=== PATIENT | male | born 2000 ===

== ENCOUNTER 2025-04-06 17:44 | Outpatient (CLI) | payer BC, SELFPAY ==
--- NOTE | ~2025-04-06 | XR_ITS ---
EXAMINATION: XR chest 2V DATE: 04/06/2025 18:06 INDICATION: Cough. TECHNIQUE: Frontal and lateral views of the chest were obtained. COMPARISON: None. FINDINGS: Heart size is normal. Lungs are clear of acute processes. IMPRESSION: 1. No acute pulmonary findings. Reviewed, dictated and finalized at location T. ING ASSISTANT PROPERTY MANAGER
--- OUTSIDE RECORDS SUMMARY | 2025-04-06 18:25 | XMS_ITS | Clinical Summary ---
Author Organization [facility] [address] [place] Address [address] [place] [id number] Care Team Providers Care Numerical Control Machine Machinist Name Role Phone Unknown, Notinfile Primary Care Provider Unavail able Allergies No known active allergies Medications clindamycin (CLEOCIN T) 1 % lotion 4 Active ketoconazole (NIZORAL) 2 % shampoo 4 Active tretinoin (RETIN-A) 0.05 % cream 4 Active cyclobenzaprine (FLEXERIL) 10 mg tabletIndication s:Acute bilateral low back pain without sciatica Take 1 tablet (10 mg total) by mouth 3 (three) times a day as needed for muscle spasms 15 tablet 4 Active Additional Information Patient not taking.Reported on 10/11/2024 Zenatane 40 mg capsule Take 1 capsule (40 mg total) by mouth daily 5 Active albuterol HFA (PROVENTIL HFA,VENTOLIN HFA,PROAIR HFA) 90 mcg/actuation inhalerIndicatio ns:Exacerbation of asthma, unspecified asthma severity, unspecified whether persistent Inhale 2 puffs every 6 (six) hours as needed for wheezing 1 each 5 09/29/19 26 Active benzonatate (TESSALON) 200 mg capsuleIndicatio ns:Acute lower respiratory infection Take 1 capsule (200 mg total) by mouth 3 (three) times a day as needed for cough keep tessalon out of reach of children, especially children under the age of 10, due to possible serious risk such as if ingested by children under the age of 10. 30 capsule 5 Active Active Problems No known active problems Social History Tobacco Use Types Packs/Day Years Used Date Smoking Tobacco: Never Assessed Sex and Gender Information Value Date Recorded Sex Assigned at Not on file Legal Sex Male 12:22 PM CDT Gender Identity Not on file Sexual Orientation Not on file Last Filed Vital Signs Vital Sign Reading Time Taken Comments Blood Pressure 122/84 10/11/2024 4:08 PM CDT Pulse 113 10/11/2024 4:08 PM CDT Temperature 37.2 C (99 F) 10/11/2024 4:08 PM CDT Respiratory Rate 24 10/11/2024 4:08 PM CDT Oxygen Saturation 97% 10/11/2024 4:08 PM CDT Inhaled Oxygen Concentration - - Weight 152.4 kg (336 lb) 10/11/2024 4:08 PM CDT Height 180.3 cm (5' 11) 10/11/2024 4:08 PM CDT Body Mass Index 46.86 10/11/2024 4:08 PM CDT Plan of Treatment Health Maintenance Due Date Last Done Comments Depression Screening 1999 Hepatitis C Screening 1999 Pneumococcal vaccine <65 (1 of 1 - PPSV23, PCV20, or PCV21) 10/07/2005 09/03/2000 HPV Vaccines (3 - Male 2-dos e series) 09/30/2012 07/08/2012, 05/06/2012, 12/24/2011 Regular Well Visit/Exam 18-64 10/07/2017 Covid-19 Vaccine (4 - 2024-2 6 season) 2025 04/24/2021, 08/31/2020, 08/03/2020 Influenza Vaccine (#1) 2025 05/06/2012, 2011 DTaP/Tdap/Td Vaccine (7 - Td or Tdap) 12/18/2027 12/17/2017, 10/31/2010, 04/29/2001, Additional history exists Hepatitis B Screening Completed 09/03/2000 , 02/24/2000, 1999 Varicella Vaccines Completed 10/31/2010, 02/04/2001 Insurance [place] CHO[place] Care Teams Numerical Control Machine Machinist Relationship Specialty Start Date End Date Unknown, Notinfile PCP - General 04/22/24
== END 2025-04-06 17:45 | disposition home or self-care (01) ==
LOC: ANHIMG 17:55
DX: R05.9 Cough, unspecified (principal)
CPT/HCPCS: 71046